=== PATIENT | male | born 1975 | race American Indian/Alaskan Native ===

== ENCOUNTER 2021-02-27 13:36 | Outpatient (CLI) | payer BC ==
[2021-02-27 14:16] LABS: Blood Urea Nitrogen 13 mg/dL (9-20)
--- NOTE | 2021-02-27 14:41 | XRay Report ---
CHEST 2 VIEWS INDICATION / CLINICAL INFORMATION: SOB. COMPARISON: None available. FINDINGS: SUPPORT DEVICES: None. HEART / MEDIASTINUM: No significant abnormality. LUNGS / PLEURA: No significant pulmonary abnormality. No significant pleural effusion. No pneumothora x. ADDITIONAL FINDINGS: No significant additional findings. IMPRESSION: 1. No acute abnormality of the chest. Signer Name: Mateus Alvares MD Signed: 02/27/2021 2:37 PM Workstation Name: [id number]
--- NOTE | 2021-02-27 15:58 | Cat Scan Report ---
. CT ABDOMEN WITH CONTRAST HISTORY: PAIN 100 ml omni 300. Acute generalized abdominal pain COMPARISON: None. TECHNIQUE: CT images of the abdomen were obtained following administration of intravenous contrast. All CT scans at this location are performed using CT dose reduction for ALARA by means of automated e xposure control. CONTRAST: 100 ml of intravenous contrast administered. FINDINGS: Lungs/bones: Lung bases are clear. Mild degenerative changes in the spine with no acute osseous abno rmality identified. Abdomen: There is a large complex renal mass which is primarily solid and in total measures approxim ately 5.5 x 7.5 x 7.7 cm on image 74 of series 2 and image 70 of series 601. No pathologic regional a denopathy identified. No hydronephrosis or renal vein invasion. Simple cyst noted in the upper pole t he left kidney. Liver, gallbladder, spleen, pancreas, adrenals, and visualized GI tract appear unremarkable. IMPRESSION: 1. Large solid right renal mass worrisome for renal cell carcinoma as above. Signer Name: Marcial Webb MD Signed: 02/27/2021 3:53 PM Workstation Name: [id number]
== END 2021-02-27 13:37 | disposition home or self-care (01) ==
LOC: CT 13:36
PROVIDERS: ATTEND Internal Medicine
DX: N28.1 Cyst of kidney, acquired (principal); R10.0 Acute abdomen; N28.89 Other specified disorders of kidney and ureter; M47.816 Spondylosis without myelopathy or radiculopathy, lumbar region
CPT/HCPCS: 36415; 71046; 74160; 82565; 84520; Q9967